=== PATIENT | male | born 1970 | race Hispanic/Latino ===

== ENCOUNTER 2019-06-22 | Emergency (ER) | payer OTHER ==
[~2019-06-22] MED LIST: ANUCORT-HC25 MG RE; CEPHALEXIN125 MG/5 M PO; NAPROSYN500 MG PO; ROBITUSSIN AC10 ML PO; TYLOPHEN500 MG PO
[2019-06-22] MEDS ORDERED: OFLOXACIN0.3 % OD (08:42)
== END 2019-06-22 08:52 | disposition home or self-care (01) | DRG 125 ==
DX: H10.9 Unspecified conjunctivitis (principal)

== ENCOUNTER 2020-03-07 08:51 | Emergency (ER) | payer OTHER ==
[~2020-03-07] VITALS: Ht 172.7 cm; Wt 75.0 kg
[~2020-03-07 08:51] MED LIST changes: +OFLOXACIN0.3 % OD
[2020-03-07 09:31] LABS: HEMATOCRIT 46.1 % (39.0-50.0); HEMOGLOBIN 15.6 g/dl (14.0-18.0); IMMATURE GRANULOCYTES 0.3 % (0.0-5.0); MEAN CELL VOLUME 97.3 fL CALC (80.0-100.0); MEAN CORPUSCULAR HGB 32.9 pG CALC (26.0-32.0); MEAN CORPUSCULAR HGB CONC 33.8 g/dL CAL (32.0-36.0); NEUT# 4.76 thou/uL (1.82-7.42); RED BLOOD COUNT 4.74 mill/uL (4.70-6.10); RED CELL DISTRI WIDTH 12.6 % (11.5-15.5)
[2020-03-07 09:40] LABS: ALBUMIN 4.7 g/dL (3.2-5.0); ALKALINE PHOSPHATASE 86 u/l (38-126); BUN 13 mg/dL (9-20); BUN/CREATININE RATIO 17 (12-20 (CALC)); CHLORIDE 103 mmol/l (95-108); CREATININE 0.8 mg/dL (0.7-1.3); GFR > 60 ML/MIN (>=60 (CALC)); GFR FOR AFR.AMER. > 60 ML/MIN (>=60 (CALC)); POTASSIUM 4.3 mmol/l (3.5-5.1); SGOT/AST 21 u/l (17-59); SODIUM 139 mmol/l (137-146); TOTAL PROTEIN 7.8 g/dL (6.3-8.2)
[2020-03-07 09:49] LABS: ANION GAP 11 (6-22 (CALC)); BILIRUBIN, TOTAL 1.7 mg/dL (0.0-1.4); CARBON DIOXIDE 29 mmol/l (22-30)
[2020-03-07 13:55] VITALS: BP 108/63
== END 2020-03-07 14:01 | disposition home or self-care (01) | DRG 313 ==
LOC: ED 08:51
PROVIDERS: Family Medicine
DX: R07.9 Chest pain, unspecified (principal); I45.10 Unspecified right bundle-branch block